=== PATIENT | female | born 1990 | race Caucasian/White ===

== ENCOUNTER 2018-02-02 16:10 | Outpatient (CLI) | payer BC ==
[2018-02-02 16:38] VITALS: BP 125/74; PULSE 111; RESP 18; TEMP 97.8
--- NOTE | 2018-02-03 07:25 | P.MSEPDOC ---
Presenting Problems - Arrival Data Date of Arrival on Unit: 02/02/18 Time of Arrival on Unit: 16:12 Mode of Transport: Ambulatory - Complaint OB-Reason for Admission/Chief Complaint: Other Comment: "Something buldging from vagina" Medical History - Information : 1 Para: 0 Term: 0 : 0 Abortions: Spontaneous or Elective: 0 Number of Living Children: 0 - Gestational Age Gestational Age by LEA (wks/days): 36 Weeks and 2 Days Review of Systems - Review of Systems Constitutional: Fatigue Breast: No problems ENT: Nasal congestion Cardiovascular: No problems Respiratory: No problems Gastrointestinal: Constipation Genitourinary: No problems Musculoskeletal: No problems Neurological: Dizziness Skin: No problems Comment: Hx of asthma Vital Signs - Temperature Temperature: 97.8 F Temperature Source: Temporal Artery Scan - Pulse Pulse Oximetery Pulse Rate: 111 Pulse Assessment Method: Automatic Cuff - Respirations Respiratory Rate: 18 Oxygen Delivery Method: Room Air O2 Sat by Pulse Oximetry: 97 - Blood Pressure Right Arm Blood Pressure: 125/74 Blood Pressure Mean: 91 Blood Pressure Source: Automatic Cuff Medical Screen Scoring (Pre) - Cervical Exam Dilation: 0 cm = 0 Membranes: Intact - Uterine Contractions Frequency: > or = 36 weeks =2 - Maternal Vital Signs Maternal Temperature: N/A Signs of Preeclampsia: N/A Maternal Respirations: N/A - Pain Assessment Pain Location and Character: Perineal Pain Scale Used: Numeric (1 - 10) Pain Intensity: 1 Pain Description: *Acute, Pressure Pain Radiation Location: none Pain Frequency: Constant Pain Duration: 1 Pain Duration Units: Months Pain Behavior: None Exhibited Pain Aggravating Factors: Walking - Maternal Trauma Maternal Trauma: N/A - Assessment Baseline FHR: 135 Heart Rate - NICHD Category: Category I (Normal) = 0 NST: Reactive Position: N/A Station: N/A - Total Score Total Score (Pre): 2 - Level of Risk Level of Risk: Low (0-5) Physician Notification (Pre) - Physician Notified Physician Notified Date: 02/02/18 Physician Notified Time: 16:50 Physician/Practitioner Notifed:: Dr Castellanos - Notification Comment Comment: 1649- Dr Castellanos will be over to see patient. 1704- Dr Castellanos evaluated pt, states it is a vaginal cyst, for patient to leave it alone. Disposition - Disposition OB Disposition: Discharge to home Discharge Date: 02/02/18 Discharge Time: 17:13 I agree with the RN Medical Screening Exam: Yes Risk & Benefit of care provided described in d/c instruction: Yes Diagnosis: PELVIC AND PERINEAL PAIN
== END 2018-02-02 17:13 | disposition home or self-care (01) ==
LOC: FBPOP 16:10
PROVIDERS: ATTEND Obstetrics & Gynecology
DX: O26.893 Other specified pregnancy related conditions, third trimester (principal); R10.2 Pelvic and perineal pain; Z3A.36 36 weeks gestation of pregnancy
CPT/HCPCS: 59025; 99213

== ENCOUNTER 2018-02-24 05:28 | Inpatient (IN) | payer BC ==
[2018-02-24] MEDS ORDERED: TERBUTALINE 1 MG/ML VIAL SQ PRN (05:44)
[2018-02-24] MEDS ORDERED: CARBOPROST TROMETHAMINE 250 MCG/ML 1 ML AMP IM PRN (05:44)
[2018-02-24] MEDS ORDERED: OXYTOCIN 20 UNITS/1000 ML NS 1,000 ML IV SCH ×2 (05:44→14:05)
[2018-02-24] MEDS ORDERED: LIDOCAINE 0.5% (PF) 5 MG/ML (50 ML SDV) SQ PRN (05:44)
[2018-02-24] MEDS ORDERED: OXYTOCIN 10 UNIT/ML 1 ML VIAL IM PRN (05:44)
[2018-02-24] MEDS ORDERED: METHYLERGONOVINE 0.2 MG/ML 1 ML AMP IM PRN (05:44)
[2018-02-24 06:00] LABS: HCT 30.1 % (34.0-46.0); MCH 31.4 pg (25.0-35.0); MCHC 33.1 g/dL (31.0-37.0); MCV 94.9 fL (80.0-100.0); Mean Platelet Volume 6.7; Platelet Count 234 k/uL (150-450); Poikilocytosis Slight; RBC 3.17 m/uL (3.80-5.40); WBC 10.6 k/uL (3.8-10.6)
--- NOTE | 2018-02-24 06:12 | P.HPOB ---
History of Present Illness H&P Date: 02/24/18 Chief Complaint: Maternal discomfort requesting induction of labor. This patient is a pleasant 27-year-old 1 para 0 female estimated date of confinement 02/28/2018 estimated gestational age 39-3/7 weeks who presents to labor and delivery for requested induction of labor. Patient's been quite uncomfortable last 1-2 weeks most recently developed some itching of her abdomen and extremities. Blood work plus far has been negative for cholestasis however due to the patient's discomfort she is requested induction at this time. care has otherwise been uncomplicated. Review of Systems Gastrointestinal: Reports heartburn Genitourinary: Reports Menstruation: Reports amenorrhea Past Medical History Additional Past Medical History / Comment(s): Patient has a history of constipation and diarrhea. History of Any Multi-Drug Resistant Organisms: None Reported Past Surgical History: No Surgical Hx Reported Past Anesthesia/Blood Transfusion Reactions: No Reported Reaction Past Psychological History: No Psychological Hx Reported Smoking Status: Never smoker Past Alcohol Use History: None Reported Past Drug Use History: None Reported Medications and Allergies Home Medications Medication Instructions Recorded Confirmed Type Pnv No.95/Ferrous Fum/Folic AC 1 each PO DAILY 02/02/18 02/24/18 History [ Multivitamin Tablet] Allergies Allergy/AdvReac Type Severity Reaction Status Date / Time Latex, Natural Rubber Allergy Rash/Hives Verified 02/24/18 05:43 Exam Intake and Output 02/23/18 02/23/18 02/24/18 14:59 22:59 06:59 Other: # Voids 1 Weight 78.925 kg - OBG Physical Exam Abdomen: bowel sounds normal, no diffuse tenderness, no bruit present, no guarding noted, no hepatomegaly, no splenomegaly, no mass Vulva: both: normal Vagina: normal moisture, no discharge Cervix: Cervix is 3-4 cm dilated 50% effaced -1 station. Cervix: no lesion, no discharge Uterus: enlarged (Fundal height is 39 cm) Results blood work shows she is O positive, rubella immune, RPR nonreactive, hepatitis B negative, Glucola was normal, group B strep was negative, ultrasound last week showed the baby be 7 lbs. 12 oz. vertex presentation Assessment and Plan Assessment: This is a pleasant 27-year-old 1 para 0 female 39-3/7 weeks gestation admitted to labor and delivery for requested induction of labor. Plan is induction of labor and anticipate vaginal delivery. (1) Third trimester Current Visit: Yes Status: Acute Code(s): Z34.93 - ENCNTR FOR SUPRVSN OF NORMAL PREG, UNSP, THIRD TRIMESTER SNOMED Code(s): 22656695 (2) Elective induction of labor planned Current Visit: Yes Status: Acute Code(s): EXC7571 - SNOMED Code(s): 757058096
[2018-02-24] MEDS: LACTATED RINGERS 1,000 ML IV SCH ×2 (06:15→10:04)
[2018-02-24 06:30] VITALS: BMI 30.8
[2018-02-24 09:00] LABS: Basophils # (M) 0.11 k/uL (0-0.2); Eosinophils # (M) 0.11 k/uL (0-0.7); Lymphocytes # (M) 5.19 k/uL (1.0-4.8); Monocytes # (M) 0.32 k/uL (0-1.0); Neutrophils # (M) 4.88 k/uL (1.3-7.7); Neutrophils % (M) 46 %; Nucleated Red Blood Cells 0 /100 WBC (0-0); Total Cells Counted 100; Toxic Granulation Present
[2018-02-24 09:01] LABS: Poikilocytosis (M) Present
[2018-02-24] MEDS ORDERED: ROPIVACAINE 100 MG, fentaNYL (PF) 200 MCG in SODIUM CHLORIDE 0.9% 76 ML EPIDURAL ONE (10:59)
[2018-02-24] MEDS ORDERED: LANOLIN CREAM 5 GM TUBE TOPICAL PRN (14:05)
[2018-02-24] MEDS ORDERED: BISACODYL 10 MG SUPP RECTAL PRN (14:05)
[2018-02-24] MEDS ORDERED: SIMETHICONE 80 MG CHEWABLE PO PRN (14:05)
[2018-02-24] MEDS ORDERED: HYDROCORTISONE 2.5% RECTAL CREAM 30 GM TUBE RECTAL PRN (14:05)
[2018-02-24] MEDS ORDERED: diphenhydrAMINE 25 MG CAP PO PRN (14:05)
[2018-02-24] MEDS ORDERED: diphenhydrAMINE 50 MG/ML 1 ML VIAL IVP PRN (14:05)
[2018-02-24] MEDS ORDERED: ZOLPIDEM 5 MG TAB PO PRN (14:05)
[2018-02-24] MEDS ORDERED: BENZOCAINE/MENTHOL SPRAY 1 GM/SPRAY AEROSOL TOPICAL PRN (14:05)
[2018-02-24] MEDS ORDERED: WITCH HAZEL 1 EACH MED..PAD TOPICAL PRN (14:05)
[2018-02-24] MEDS: ACETAMINOPHEN TAB 325 MG TAB PO PRN ×2 (14:53→20:14)
--- NOTE | 2018-02-24 16:47 | P.PROBDLV ---
Vaginal Delivery Note - . Vaginal Delivery Note: Normal vaginal delivery viable female Apgars 9 and 9 delivery time is 1316 hrs. Please see dictated H&P for intimate details of this patient's admission. Brief summary this pleasant 27-year-old 1 para 0 female 39-3/7 weeks gestation who is admitted to labor and delivery for requested induction of labor. Patient is admitted is 3-4 cm dilated has artificial rupture membranes for clear fluid. Labor is augmented with Pitocin per protocol. Patient progresses and does get an epidural for pain control. Patient does get to complete and pushes for approximately 45 minutes. She'll head to the perineum she does have some episodes of variable decelerations at which time she 's coached to breathe through her contractions. Patient and pushes the head to the perineum the posterior perineum was supported and we have controlled delivery of 's head over the intact perineum. She does have a posterior hand presenting with the head and a loop of cord presenting next to the head as well. With gentle downward traction and maternal effort we have delivery the anterior and posterior shoulder and rest this infant's body. This is a vigorous viable female infant Apgars are 9 and 9 delivery time is 1316 hrs. Infant has spontaneous respirations and good cry and grossly appears normal. The is late on the mother's abdomen. Once the core is done pulsating is doubly clamped cut. It appears to be trivascular. Placenta is then spontaneously delivered intact. Inspection of perineum shows a third- degree laceration and there is also a right vaginal laceration. Quite edematous but the right vaginal laceration is reapproximated with 3-0 Vicryl usual fashion with excellent reapproximation. The rectal sphincter is easily identified with Allis clamps after I placed a Gelpi for visualization. Both rectal sheaths and muscles are intact and easily identified. Reapproximated using a 3-0 Vicryl times for an interrupted fashion. Excellent reapproximation is noted. Rest of the laceration is repaired with 3-0 Vicryl usual fashion. Again good reapproximation is noted. A final examination including rectal exam shows no defects good reapproximation. All counts are correct 2. There are no complications. Infant and mother stable delivery room.
[2018-02-24] MEDS: IBUPROFEN 600 MG TAB PO PRN (17:58)
[2018-02-24] MEDS: SENNOSIDES-DOCUSATE SODIUM 1 EACH TAB PO SCH ×2 (20:15→20:56)
[2018-02-25] MEDS: IBUPROFEN 600 MG TAB PO PRN ×3 (00:11→15:10)
[2018-02-25] MEDS: ACETAMINOPHEN TAB 325 MG TAB PO PRN (04:10)
--- NOTE | 2018-02-25 06:27 | P.PNOBGVD ---
Subjective - Subjective Patient reports: Reports appetite normal, Reports voiding normally, Reports pain well controlled, Reports ambulating normally : doing well Objective - Latest Vital Signs Latest vital signs: Vital Signs Temp Pulse Resp BP 02/25/18 00:00 97.9 F 71 14 108/67 02/24/18 20:00 98.5 F 93 16 118/77 02/24/18 16:00 98.6 F 93 16 117/66 02/24/18 15:23 98.9 F 100 16 118/58 02/24/18 14:55 99.0 F 105 H 16 112/69 02/24/18 14:25 120 H 16 108/63 02/24/18 14:11 99.3 F 114 H 16 114/65 02/24/18 13:56 117 H 16 102/69 02/24/18 13:41 99.9 F H 118 H 16 99/67 02/24/18 13:26 118 H 16 119/66 Intake and Output 02/24/18 02/24/18 02/25/18 14:59 22:59 06:59 Intake Total 1500 Output Total 150 Balance 1350 Intake: IV 1500 Lactated Ringers 1,000 ml 1500 @ 125 mls/hr IV .Q8H FRANKO Rx#:[id number] Output: Estimated Blood Loss 150 Other: # Voids 1 - Exam Lungs: bilateral: normal Chest: Normal S1, Normal S2 Extremities: Present: normal Abdomen: Present: normal appearance, soft Uterus: Present: normal, firm - Labs Labs: Abnormal Lab Results - Last 24 Hours (Table) 02/24/18 Range/Units 05:45 RBC 3.17 L (3.80-5.40) m/uL Hgb 10.0 L (11.4-16.0) gm/dL Hct 30.1 L (34.0-46.0) % Lymphocytes # (Manual) 5.19 H (1.0-4.8) k/uL Assessment and Plan Assessment: day #1. Patient is resting without complaints and wishes to go home. Vital signs are stable she is afebrile. Uterus is firm nontender she's having normal lochia. My impression is this is a normal course. Plan is to continue routine care discharge home later today. (1) Third trimester Current Visit: Yes Status: Acute Code(s): Z34.93 - ENCNTR FOR SUPRVSN OF NORMAL PREG, UNSP, THIRD TRIMESTER SNOMED Code(s): 51156071 (2) Elective induction of labor planned Current Visit: Yes Status: Acute Code(s): FOF2202 - SNOMED Code(s): 563861561
--- NOTE | 2018-02-25 06:33 | P.DS ---
Providers Date of admission: 02/24/18 05:28 Expected date of discharge: 02/25/18 Attending physician: Andres Castellanos Primary care physician: Stated None - Discharge Diagnosis(es) (1) Third trimester Current Visit: Yes Status: Acute (2) Elective induction of labor planned Current Visit: Yes Status: Acute Hospital Course: Please see dictated H&P for intimate details of this patient's admission. Brief summary this is a pleasant 27-year-old 1 para 0 female 39-3/7 weeks gestation who is admitted to labor and delivery for elective induction of labor. Patient is uncomplicated induction of labor was on have a vaginal delivery viable female infant. Please see dictated delivery note. day 1 patient is without complaints and wishes to go home. Patient's felt to be stable for discharge home follow up with me in 6 weeks. Procedures: Induction of labor and normal vaginal delivery. Patient Condition at Discharge: Good Plan - Discharge Summary New Discharge Prescriptions: New Ibuprofen [Motrin] 600 mg PO Q6HR PRN #40 tab PRN Reason: Mild Pain Or Fever >= 100.5 No Action Pnv No.95/Ferrous Fum/Folic AC [ Multivitamin Tablet] 1 each PO DAILY Discharge Medication List Pnv No.95/Ferrous Fum/Folic AC [ Multivitamin Tablet] 1 each PO DAILY [History] Ibuprofen [Motrin] 600 mg PO Q6HR PRN #40 tab 02/25/18 [Rx] Follow up Appointment(s)/Referral(s): Andres Castellanos MD [STAFF PHYSICIAN] - 04/08/18 11:15 am Patient Instructions/Handouts: Vaginal Delivery (DC), Perineal Tear with Delivery (DC) Activity/Diet/Wound Care/Special Instructions: No intercourse or anything per vagina for 6 weeks. Please call if any fever, chills, excessive vaginal bleeding, and/or abdominal pain. Discharge Disposition: HOME SELF-CARE
[2018-02-25] MEDS: SENNOSIDES-DOCUSATE SODIUM 1 EACH TAB PO SCH (08:32)
[2018-02-25 08:51] VITALS: BP 114/68; PULSE 87; RESP 20; TEMP 98.3
--- NOTE | 2018-03-02 08:55 | CDI ---
Last Revision, May 2017 Documentation Clarification Form Date: 03/02/18 From: [place] Jonathan Bibi Blackburn, Backroom Associate Hours-8:30 am & 5 pm MYosi Admit Date: 02/24/2018 5:28:00 AM Patient Name: Laura Watkins Visit Number: [id number] Discharge Date: 02/25/18 ATTENTION: The Clinical Documentation Specialists (CDI) and [facility] Coding Staff appreciate your assistance in clarifying documentation. Please respond to the clarification below the line at the bottom and electronically sign. The CDI & [facility] Coding staff will review the response and follow-up if needed. Please note: Queries are made part of the Legal Health Record. If you have any questions, please contact the author of this message via ITS. Andres Taylor MD Per delivery note documentation- "Inspection of perineum shows a third-degree laceration and there is also a right vaginal laceration". Treatment: The rectal sphincter is easily identified with Allis clamps ... both rectal sheaths and muscles are intact ... reapproximated using a 3-0 Vicryl times for an interrupted fashion. In your professional opinion, can you please clarify third degree laceration: Third degree perineal laceration during delivery, IIIa (less than 50% of EAS thickness torn) Third degree perineal laceration during delivery, IIIb (more than 50% EAS thickness torn) Third degree perineal laceration during delivery, IIIc (both EAS and IAS torn) Third degree perineal laceration during delivery, unspecified Other, please specify Unable to determine Please continue to document in your progress notes and discharge summary in order to capture severity of illness and risk of mortality. Include clinical findings that support your diagnosis. Third degree perineal laceration during delivery unspecified. SHEROND
== END 2018-02-25 15:20 | disposition home or self-care (01) | DRG 775 ==
LOC: 4FBP 05:28
PROVIDERS: ADMIT Obstetrics & Gynecology; ATTEND Obstetrics & Gynecology
PROC: 10E0XZZ Delivery of Products of Conception, External Approach (ICD-10-PCS; principal; 2018-02-24)
PROC: 0KQM0ZZ Repair Perineum Muscle, Open Approach (ICD-10-PCS; 2018-02-24)
PROC: 3E033VJ Introduction of Other Hormone into Peripheral Vein, Percutaneous Approach (ICD-10-PCS; 2018-02-24)
PROC: 00HU33Z Insertion of Infusion Device into Spinal Canal, Percutaneous Approach (ICD-10-PCS; 2018-02-24)
PROC: 3E0R3BZ Introduction of Anesthetic Agent into Spinal Canal, Percutaneous Approach (ICD-10-PCS; 2018-02-24)
PROC: 0DQR0ZZ Repair Anal Sphincter, Open Approach (ICD-10-PCS; 2018-02-24)
DX: O71.4 Obstetric high vaginal laceration alone (principal); Z37.0 Single live birth; O70.20 Third degree perineal laceration during delivery, unspecified; O76 Abnormality in fetal heart rate and rhythm complicating labor and delivery; Z79.899 Other long term (current) drug therapy; Z3A.39 39 weeks gestation of pregnancy; Z87.19 Personal history of other diseases of the digestive system
CPT/HCPCS: 85025

== ENCOUNTER → 2019-01-11 | Outpatient (CLI) | payer BC ==
--- NOTE | 2019-01-11 10:14 | US ---
EXAMINATION TYPE: US abdomen limited DATE OF EXAM: 01/11/2019 COMPARISON: NONE CLINICAL HISTORY: K81.9 cholecystitis. EXAM MEASUREMENTS: Liver Length: 12.6 cm Gallbladder Wall: 0.2 cm CBD: 0.2 cm Right Kidney: 11.4 x 3.7 x 5.1 cm Pancreas: mostly obscured by bowel gas, portions visualized wnl Liver: wnl Gallbladder: wnl Evidence for sonographic Helm's sign: No CBD: wnl Right Kidney: echogenic pyramids, possible medullary sponge kidney IMPRESSION: 1. No sonographic evidence of cholelithiasis nor acute cholecystitis. 2. 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
[2019-01-11 10:19] LABS: HCT 43.5 % (34.0-46.0); HGB 14.5 gm/dL (11.4-16.0); MCH 30.3 pg (25.0-35.0); MCHC 33.4 g/dL (31.0-37.0); MCV 90.9 fL (80.0-100.0); Platelet Count 235 k/uL (150-450); RBC 4.79 m/uL (3.80-5.40); RDW 12.4 % (11.5-15.5); WBC 6.6 k/uL (3.8-10.6)
[2019-01-11 10:40] LABS: Albumin 4.4 g/dL (3.5-5.0); Bilirubin, Delta 0.1 mg/dL (0.0-0.2); Bilirubin,Unconjugated 0.4 mg/dL (0.0-1.1); Total Bilirubin 0.5 mg/dL (0.2-1.3); Total Protein 7.2 g/dL (6.3-8.2)
== END | disposition home or self-care (01) ==
LOC: RADUSWWP 09:18
PROVIDERS: ATTEND Obstetrics & Gynecology
DX: K81.9 Cholecystitis, unspecified (principal)
CPT/HCPCS: 36415; 76705; 80076; 85027

== ENCOUNTER → 2019-10-03 | Outpatient (CLI) | payer BC | END | disposition home or self-care (01) | LOC: LABWHC1 10:01 | PROVIDERS: ATTEND Obstetrics & Gynecology | DX: O20.0 Threatened abortion (principal) | CPT/HCPCS: 36415; 84702 ==

== ENCOUNTER → 2019-10-10 | Outpatient (CLI) | payer BC | END | disposition home or self-care (01) | LOC: LABWHC1 08:26 | PROVIDERS: ATTEND Obstetrics & Gynecology | DX: O20.0 Threatened abortion (principal) | CPT/HCPCS: 36415; 84702 ==

== ENCOUNTER 2020-08-01 05:50 | Inpatient (IN) | payer BC ==
[2020-08-01] MEDS ORDERED: OXYTOCIN 10 UNIT/ML 1 ML VIAL IM PRN (05:57)
[2020-08-01] MEDS ORDERED: LIDOCAINE 0.5% (PF) 5 MG/ML (50 ML SDV) SQ PRN (05:57)
[2020-08-01] MEDS ORDERED: LACTATED RINGERS 1,000 ML IV SCH (05:57)
[2020-08-01] MEDS ORDERED: OXYTOCIN 30 UNITS/500 ML NS 30 UNIT in SALINE 1 500ML.BAG IV SCH ×2 (05:57→10:23)
[2020-08-01] MEDS ORDERED: TERBUTALINE 1 MG/ML VIAL SQ PRN (05:57)
[2020-08-01] MEDS ORDERED: CARBOPROST TROMETHAMINE 250 MCG/ML 1 ML AMP IM PRN (05:57)
[2020-08-01] MEDS ORDERED: METHYLERGONOVINE 0.2 MG/ML 1 ML AMP IM PRN (05:57)
[2020-08-01 06:22] LABS: Basophils % (A) 0 %; Eosinophils # (A) 0.2 k/uL (0-0.7); Eosinophils % (A) 2 %; HCT 37.8 % (34.0-46.0); HGB 12.7 gm/dL (11.4-16.0); Lymphocytes # (A) 2.4 k/uL (1.0-4.8); Lymphocytes % (A) 19 %; MCH 30.8 pg (25.0-35.0); MCHC 33.6 g/dL (31.0-37.0); MCV 91.6 fL (80.0-100.0); Mean Platelet Volume 8.2; Monocytes # (A) 0.6 k/uL (0-1.0); Monocytes % (A) 5 %; Neutrophils # (A) 9.1 k/uL (1.3-7.7); Neutrophils % (A) 73 %; Platelet Count 219 k/uL (150-450); RBC 4.13 m/uL (3.80-5.40); RDW 13.9 % (11.5-15.5); WBC 12.6 k/uL (3.8-10.6)
--- NOTE | 2020-08-01 06:30 | P.HPOB ---
History of Present Illness H&P Date: 08/01/20 Chief Complaint: Requested induction of labor This patient is a pleasant 29-year-old 3 para 1 female estimated date of confinement 08/08/2020 estimated gestational age 39-0/7 weeks gestation who is admitted to labor and delivery for requested induction of labor. Patient's care has been complicated by some first trimester nausea and vomiting, otherwise has been uncomplicated. Patient has been uncomfortable is now requesting induction of labor. Review of Systems Genitourinary: Reports Menstruation: Reports amenorrhea Past Medical History Past Medical History: No Reported History Additional Past Medical History / Comment(s): Patient has a history of constipation and diarrhea. She had a previous term vaginal deliveries 7 lbs. 4 oz. baby girl. History of Any Multi-Drug Resistant Organisms: None Reported Past Surgical History: No Surgical Hx Reported Past Anesthesia/Blood Transfusion Reactions: Previous Problems w/ Anesthesia Additional Past Anesthesia/Blood Transfusion Reaction / Comment(s): pt states she has a hard time waking from anesthesia. Past Psychological History: No Psychological Hx Reported Smoking Status: Never smoker Past Alcohol Use History: None Reported Past Drug Use History: None Reported - Past Family History Father Family Medical History: No Reported History Medications and Allergies Home Medications Medication Instructions Recorded Confirmed Type Pnv No.95/Ferrous Fum/Folic AC 1 each PO DAILY 02/02/18 08/01/20 History [ Multivitamin Tablet] Doxylamine Succinate [Unisom] 25 mg PO 08/01/20 History Allergies Allergy/AdvReac Type Severity Reaction Status Date / Time Latex, Natural Rubber Allergy Rash/Hives Verified 02/24/18 05:43 Exam Vital Signs Temp Pulse Resp BP Pulse Ox 08/01/20 05:54 97.8 F 93 16 139/79 96 Intake and Output 07/31/20 07/31/20 08/01/20 14:59 22:59 06:59 Other: # Voids 1 Weight 89.358 kg - OBG Physical Exam Vulva: both: normal Vagina: normal moisture, no discharge Cervix: Cervix is 4 cm dilated 50% effaced -2 station Cervix: no lesion (Cervix is 4 cm dilated 50% effaced -2 station.), no discharge Uterus: enlarged (Fundal height 38 cm) Results Patient's blood work shows she is O positive, rubella immune, RPR nonreactive, hepatitis B negative, Glucola was abnormal with a normal three-hour gtt., group B strep was negative, growth ultrasound and anatomy ultrasounds have been normal. Result Diagrams: 08/01/20 06:10 Abnormal Lab Results - Last 24 Hours (Table) 08/01/20 Range/Units 06:10 WBC 12.6 H (3.8-10.6) k/uL Neutrophils # 9.1 H (1.3-7.7) k/uL Assessment and Plan Assessment: This is a pleasant 29-year-old 3 para 1 female estimated gestational age 39-0/7 weeks gestation who is admitted to labor and delivery for requested induction of labor. Plan is induction of labor and anticipate vaginal delivery. (1) 39 weeks gestation of Current Visit: Yes Status: Acute Code(s): Z3A.39 - 39 WEEKS GESTATION OF SNOMED Code(s): 34366957 (2) Elective induction of labor planned Current Visit: No Status: Acute Code(s): XRH8527 - SNOMED Code(s): 073775687
[2020-08-01] MEDS ORDERED: BUTORPHANOL 1 MG/ML 1 ML VIAL IV PRN (08:46)
[2020-08-01] MEDS ORDERED: HYDROCORTISONE 2.5% RECTAL CREAM 30 GM TUBE RECTAL PRN (10:23)
[2020-08-01] MEDS ORDERED: ZOLPIDEM 5 MG TAB PO PRN (10:23)
[2020-08-01] MEDS ORDERED: diphenhydrAMINE 50 MG/ML 1 ML VIAL IVP PRN (10:23)
[2020-08-01] MEDS ORDERED: LANOLIN CREAM 5 GM TUBE TOPICAL PRN (10:23)
[2020-08-01] MEDS ORDERED: BENZOCAINE/MENTHOL SPRAY 1 GM/SPRAY AEROSOL TOPICAL PRN (10:23)
[2020-08-01] MEDS ORDERED: diphenhydrAMINE 25 MG CAP PO PRN (10:23)
[2020-08-01] MEDS ORDERED: SIMETHICONE 80 MG CHEWABLE PO PRN (10:23)
[2020-08-01] MEDS ORDERED: bisacodyL 10 MG SUPP RECTAL PRN (10:23)
[2020-08-01] MEDS: IBUPROFEN 600 MG TAB PO PRN ×3 (10:38→20:53)
[2020-08-01] MEDS: SENNOSIDES-DOCUSATE SODIUM 1 EACH TAB PO SCH ×2 (11:23→19:43)
--- NOTE | 2020-08-01 12:56 | P.PROBDLV ---
Vaginal Delivery Note - . Vaginal Delivery Note: Normal vaginal delivery viable female Apgars 8 and 9 delivery time was 1013 hrs. Please see dictated H&P for intimate details of this patient's admission. In brief summary this is a pleasant 29-year-old 2 para 1 female 39 weeks gestation admitted to labor and delivery for requested induction of labor. Patient has artificial rupture membranes at 4 cm dilated for clear fluid. Labor is induced with Pitocin per protocol. Patient progresses quickly she does not request anything for pain control. Patient gets to complete pushes the head to the perineum. Posterior perineum was supported at this juliocesar it is necessary to do a midline episiotomy. We then have controlled delivery of the 's head over the perineum. Mouth and nares are bulb suctioned. Infant's head is straight occiput anterior presentation. There is a nuchal cord which is very loose and reduced. We then have spontaneous delivery the anterior and posterior shoulder and rest this infant's body. This is a vigorous viable female infant. Apgars are 8 and 9 delivery time is 1013 hrs. After delivery of the infant the umbilical cord is allowed to quit pulsating is then doubly clamped and cut. It appears to be trivascular. The placenta spontaneously delivered intact. Estimated blood loss is 100 mL. Is a second-degree laceration that is repaired with 3-0 Vicryl usual fashion excellent reapproximation is noted. All counts correct 3. There are no complications. Infant and mother are stable delivery room.
[2020-08-01 19:41] VITALS: RESP 18
[2020-08-01] MEDS: ACETAMINOPHEN TAB 325 MG TAB PO PRN (23:10)
[2020-08-01 23:25] VITALS: PULSE 79
--- NOTE | 2020-08-02 06:41 | P.PNOBGVD ---
Subjective - Subjective Patient reports: Reports appetite normal, Reports voiding normally, Reports pain well controlled, Reports ambulating normally : doing well Objective - Latest Vital Signs Latest vital signs: Vital Signs Temp Pulse Resp BP Pulse Ox 08/01/20 23:24 98 F 79 18 126/78 96 08/01/20 19:40 98 F 83 18 113/71 97 08/01/20 16:00 98.4 F 79 20 126/77 08/01/20 12:30 98.7 F 73 18 120/71 08/01/20 12:00 64 119/68 08/01/20 11:30 98.5 F 83 18 118/68 08/01/20 11:15 97.5 F L 74 18 125/71 08/01/20 11:00 97.8 F 86 18 125/72 08/01/20 10:45 93 125/65 08/01/20 10:30 98.4 F 106 H 18 136/70 Intake and Output 08/01/20 08/01/20 08/02/20 14:59 22:59 06:59 Intake Total 2.55 360 Balance 2.55 360 Intake: Intake, IV Titration 2.55 Amount Oxytocin 30 Units/500 ml 2.55 Ns 30 unit In Saline 1 500ml.bag @ Per Protocol IV .Q0M ON LICENSE OF [facility] Rx#:[id number] Oral 360 Other: # Voids 1 1 - Exam Lungs: bilateral: normal Chest: Normal S1, Normal S2 Extremities: Present: normal Abdomen: Present: normal appearance, soft Uterus: Present: normal, firm Assessment and Plan Assessment: day #1. Patient is resting without complaints. She desires to go home. Vital signs are stable she is afebrile. Uterus is firm nontender and she is having normal lochia. My impression this is a normal course. Plan is to continue routine care discharge home later today. (1) 39 weeks gestation of Current Visit: Yes Status: Acute Code(s): Z3A.39 - 39 WEEKS GESTATION OF SNOMED Code(s): 82648743 (2) Elective induction of labor planned Current Visit: No Status: Acute Code(s): FVA9513 - SNOMED Code(s): 528440513
--- NOTE | 2020-08-02 06:42 | P.DS ---
Providers Date of admission: 08/01/20 05:50 Expected date of discharge: 08/02/20 Attending physician: Andres Castellanos Primary care physician: Stated None - Discharge Diagnosis(es) (1) 39 weeks gestation of Current Visit: Yes Status: Acute (2) Elective induction of labor planned Current Visit: No Status: Acute Hospital Course: Please see dictated H&P for intimate details of this patient's admission. Brief summary this is a pleasant 29-year-old 3 para 1 female 39 weeks gestation admitted to labor and delivery for requested induction of labor. Patient has complicated induction of labor quickly goes on to have a vaginal delivery viable female infant. Please see dictated delivery note. day #1 patient's felt be stable for discharge home follow up with me in 6 weeks. Procedures: Induction of labor and normal vaginal delivery Patient Condition at Discharge: Good Plan - Discharge Summary New Discharge Prescriptions: New Ibuprofen [Motrin] 600 mg PO Q6HR PRN #30 tab PRN Reason: Mild Pain Or Fever >= 100.5 No Action Pnv No.95/Ferrous Fum/Folic AC [ Multivitamin Tablet] 1 each PO DAILY Doxylamine Succinate [Unisom] 25 mg PO Discharge Medication List Pnv No.95/Ferrous Fum/Folic AC [ Multivitamin Tablet] 1 each PO DAILY 02/02/18 [History] Doxylamine Succinate [Unisom] 25 mg PO 08/01/20 [History] Ibuprofen [Motrin] 600 mg PO Q6HR PRN #30 tab 08/02/20 [Rx] Follow up Appointment(s)/Referral(s): Andres Castellanos MD [STAFF PHYSICIAN] - 09/12/20 10:15 am Patient Instructions/Handouts: Vaginal Delivery (DC) Activity/Diet/Wound Care/Special Instructions: No intercourse or anything per vagina for 6 weeks. Please call if any fever, chills, excessive vaginal bleeding, and/or abdominal pain. Discharge Disposition: HOME SELF-CARE
[2020-08-02] MEDS: SENNOSIDES-DOCUSATE SODIUM 1 EACH TAB PO SCH (07:54)
[2020-08-02] MEDS: ACETAMINOPHEN TAB 325 MG TAB PO PRN (07:58)
[2020-08-02 08:37] VITALS: BP 124/70; TEMP 98.2
== END 2020-08-02 11:35 | disposition home or self-care (01) | DRG 807 ==
LOC: 4FBP 05:50
PROVIDERS: ADMIT Obstetrics & Gynecology; ATTEND Obstetrics & Gynecology
PROC: 3E0R3BZ Introduction of Anesthetic Agent into Spinal Canal, Percutaneous Approach (ICD-10-PCS; principal; 2020-08-01)
PROC: 10907ZC Drainage of Amniotic Fluid, Therapeutic from Products of Conception, Via Natural or Artificial Opening (ICD-10-PCS; principal; 2020-08-01)
PROC: 00HU33Z Insertion of Infusion Device into Spinal Canal, Percutaneous Approach (ICD-10-PCS; principal; 2020-08-01)
PROC: 3E033VJ Introduction of Other Hormone into Peripheral Vein, Percutaneous Approach (ICD-10-PCS; principal; 2020-08-01)
PROC: 0KQM0ZZ Repair Perineum Muscle, Open Approach (ICD-10-PCS; principal; 2020-08-01)
PROC: 10E0XZZ Delivery of Products of Conception, External Approach (ICD-10-PCS; principal; 2020-08-01)
DX: O69.81X0 Labor and delivery complicated by cord around neck, without compression, not applicable or unspecified (principal); Z37.0 Single live birth; O70.1 Second degree perineal laceration during delivery; Z3A.39 39 weeks gestation of pregnancy; Z79.899 Other long term (current) drug therapy; Z91.040 Latex allergy status
CPT/HCPCS: 85025; 86850; 86900; 86901